=== PATIENT | male | born 1955 | race Caucasian/White ===

== ENCOUNTER → 2020-08-10 | Outpatient (CLI) | payer BC, OTHER ==
[~2020-08-10] MED LIST: COZAAR 25 MG TA25 MG PO; FARXIGA5 MG PO; HUMALOG100 UNIT/1 SUBQ; LANTUS100 UNIT/M SUBQ; METFORMIN HCL1000 MG PO; NOVOLIN N100 UNIT/1 SUBQ; NOVOLOG100 UNIT/1 SUBQ; PIOGLITAZONE15 MG; PRAVACHOL40 MG PO; PROPECIA1 MG PO
== END ==
LOC: SJCVCIMAG 07-13 09:40
PROVIDERS: ATTEND Internal Medicine Cardiovascular Disease
DX: R94.31 Abnormal electrocardiogram [ECG] [EKG] (principal); I10 Essential (primary) hypertension; E11.649 Type 2 diabetes mellitus with hypoglycemia without coma